=== PATIENT | female | born 1950 | race Caucasian/White ===

== ENCOUNTER 2017-10-07 05:47 | Day surgery (SDC) | payer OTHER, BC, MEDICARE ==
[2017-10-07] MEDS ORDERED: LACTATED RINGER'S 1,000 ML IV* (06:00)
[2017-10-07] MEDS ORDERED: HYDROmorphONE (0.2 MG/ML) 10ML SYG IV ×3 (06:30)
[2017-10-07] MEDS ORDERED: MEPERIDINE 25 MG INJ IV (06:30)
[2017-10-07] MEDS ORDERED: OXYCODONE/ACETAMINOPHEN (5/325) TAB PO ×2 (06:30)
[2017-10-07] MEDS ORDERED: MIDAZOLAM 1 MG/ML 2 ML INJ IV (06:30)
[2017-10-07] MEDS ORDERED: ONDANSETRON 4 MG INJ IV (06:30)
[2017-10-07] MEDS ORDERED: FENTAnyl 50 MCG/ML VIAL IV ×2 (06:30)
[2017-10-07] MEDS ORDERED: hydrALAzine 20 MG INJ IV (06:30)
[2017-10-07] MEDS ORDERED: EPHEDrine SULFATE 50 MG/5 ML SYG IV (06:30)
[2017-10-07] MEDS ORDERED: DIPHENHYDRAMINE 50 MG INJ IV (06:30)
[2017-10-07] MEDS ORDERED: morphine (1 MG/ML) 10ML SYRINGE IV ×3 (06:30)
[2017-10-07] MEDS ORDERED: LABETALOL HCL 20MG INJ IV (06:30)
[2017-10-07] MEDS ORDERED: ATROPINE 1 MG/10 ML SYRINGE IV (06:30)
[2017-10-07] MEDS ORDERED: GLYCOPYRROLATE 1 MG INJ (07:02)
[2017-10-07] MEDS ORDERED: ROCURONIUM 50 MG INJ (07:02)
[2017-10-07] MEDS ORDERED: LIDOCAINE 2% (SDV) 5 ML INJ (07:02)
[2017-10-07] MEDS ORDERED: PROPOFOL 20 ML (07:02)
[2017-10-07] MEDS ORDERED: NEOSTIGMINE 3 MG/3 ML SYRINGE (07:02)
[2017-10-07] MEDS ORDERED: DEXAMETHASONE 4 MG/ML 1 ML INJ (07:03)
[2017-10-07] MEDS ORDERED: FENTAnyl 50 MCG/ML VIAL (07:03)
[2017-10-07] MEDS ORDERED: MIDAZOLAM 1 MG/ML 2 ML INJ (07:03)
[2017-10-07] MEDS ORDERED: ONDANSETRON 4 MG INJ (07:04)
[2017-10-07 07:24] LABS: PARTIAL THROMBOPLASTIN TIME 28.4 Sec (25.0-35.0)
[2017-10-07 07:27] LABS: INR 0.98; PROTIME 13.1 Sec (11.9-14.9)
[2017-10-07] MEDS ORDERED: CLINDAMYCIN 600 MG/D5W (PMX) 50 ML IVPB (07:59)
[2017-10-07] MEDS: BUPIVACAINE 0.5% (SDV) 30 ML INJ (08:01)
[2017-10-07] MEDS: LIDOCAINE 1% (MPF) 30 ML INJ (08:01)
== END 2017-10-07 09:55 | disposition home or self-care (01) ==
LOC: SDS 05:47
DX: G56.02 Carpal tunnel syndrome, left upper limb (principal); E11.9 Type 2 diabetes mellitus without complications; I10 Essential (primary) hypertension; E78.9 Disorder of lipoprotein metabolism, unspecified; J45.909 Unspecified asthma, uncomplicated
CPT/HCPCS: 64721; 82962; 84703; 85610; 85730